=== PATIENT | female | born 1995 | race Caucasian/White ===

== ENCOUNTER 2024-08-17 14:37 | Emergency (ER) | payer OTHER, SELFPAY ==
[2024-08-17 14:42] VITALS: BP 128/98
[2024-08-17 15:05] LABS: % Basophils 0.5 % (0-2); % Eosinophils 2.7 % (0-6); % Immature Granulocytes 0.3 % (0-0.5); % Lymphocytes 16.6 % (20.5-51.1); % Monocytes 3.7 % (1.7-9.3); % Neutrophils 76.2 % (42.2-75.2); Absolute Basophils 0.1 10^3/uL (0-0.2); Absolute Eosinophils 0.3 10^3/uL (0-0.7); Absolute Lymphocytes 1.9 10^3/uL (1.2-3.4); Absolute Monocytes 0.4 10^3/uL (0.1-0.6); Absolute Neutrophils 8.9 10^3/uL (1.4-6.5); Hematocrit 40.5 % (37.0-47.0); Hemoglobin 13.9 g/dL (12.0-16.0); Mean Corp Hgb Conc. 34.3 g/dL (33.0-37.0); Mean Corpuscular Hgb 28.4 pg (27.0-31.0); Mean Corpuscular Volume 82.8 fL (81.0-99.0); Nucleated Red Blood Cells % 0 %; Platelet Count 267 10^3/uL (130-400); Red Blood Cell Count 4.89 10^6/uL (4.20-5.40); Red Cell Dist. Width 12.2 % (11.5-14.5); White Blood Cell Count 11.7 10^3/uL (4.8-10.8)
[2024-08-17 15:20] LABS: ALT (SGPT) 16 U/L (0-35); AST (SGOT) 22 U/L (14-36); Albumin 4.9 g/dl (3.5-5.0); Alkaline Phosphatase 48 U/L (38-126); Blood Urea Nitrogen 8 mg/dl (7-17); Calcium 9.8 mg/dl (8.4-10.2); Carbon Dioxide 22 mmol/L (22-30); Chloride 100 mmol/L (98-107); Glucose 89 mg/dl (70-99); Lipase 90 U/L (23-300); Potassium 3.9 mmol/L (3.5-5.1); Sodium 138 mmol/L (135-145); Total Bilirubin 0.8 mg/dl (0.2-1.3); Total Protein 7.6 g/dl (6.3-8.2); eGFR > 60.00
[2024-08-17 15:25] LABS: Troponin I < 0.012 ng/ml
--- NOTE | 2024-08-17 15:59 | ED.GENMED ---
History of Present Illness
General
Chief Complaint: Chest Problem
Source: patient
Exam Limitations: none
Time Seen by Provider: 08/17/24 15:38
History of Present Illness
History of Present Illness:
29-year-old otherwise healthy female presents complaining with intermittent chest pressure and racing heart rate over the past couple weeks. 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
evaluation. She denies lightheadedness. She travels frequently for her job. She denies leg swelling or calf pain. She still notes a chest pressure currently. No cough or fever. 3 days ago she was at home sitting on the couch and all of a
sudden her heart rate jumped to 148 bpm. This lasted around a minute. No other complaints at this time
Phy Exam
Physical Exam
Physical Exam:
General: Well-appearing female no acute respiratory distress
HEENT: Normocephalic atraumatic
Heart: Regular rate and rhythm no murmurs
Lungs: Clear no wheeze
Extremities: No cyanosis or edema
Course
Orders/Labs/Results
Orders:
Orders
08/17/24 14:19
TSH Reflex To Free T4 Urgent
Comment: ADD ON
08/17/24 14:38
Electrocardiogram (*1) Urgent
Reason for Study: Chest Pain
EKG- Treatment ONCE
08/17/24 14:49
Complete Blood Count/With Diff Urgent
Comprehensive Metabolic Panel Urgent
Lipase Urgent
Troponin I Urgent
08/17/24 15:49
Add On- LAB Urgent
Tests Added?: tsh reflex to t4
0.9% Sodium Chloride 1000 ml [Nss] 1,000 ml IV BOLUS
08/17/24 16:01
D-Dimer Urgent
08/17/24 16:34
CR Chest - 2 Views Urgent
Comment:
Reason For Exam: chest pain
Abnormal Lab Results
08/17/24
14:49
WBC 11.7 H 10^3/uL
(4.8-10.8)
MPV 11.0 H fL
(7.4-10.4)
Absolute Neuts (auto) 8.9 H 10^3/uL
(1.4-6.5)
Neutrophils % 76.2 H %
(42.2-75.2)
Lymphocytes % 16.6 L %
(20.5-51.1)
08/17/24 14:49
08/17/24 14:49
Vital Signs
Initial and Last Documented VS:
Initial Vital Signs
Temp Pulse Resp BP Pulse Ox
98.8 F 70 16 128/98 99
08/17/24 14:42 08/17/24 14:42 08/17/24 14:42 08/17/24 14:42 08/17/24 14:42
Last Documented Vital Signs
Temp Pulse Resp BP Pulse Ox
98.8 F 70 16 128/98 99
08/17/24 14:42 08/17/24 14:42 08/17/24 14:42 08/17/24 14:42 08/17/24 14:42
MDM/Problems Addressed
Differential Diagnosis Includes:
Chest pressure intermittent tachycardia. Differential could include arrhythmias versus ACS versus PE
EKG through triage shows sinus rhythm without ischemic changes
Troponin through triage undetectable. D-dimer added TSH added. Will hydrate.
*Critical Care Note
Total Time (30-74mins, 75-104mins- exclusive of procedures): Not Applicable
Update Note
Update Note:
Troponin and D-dimer normal. Labs reviewed without significant finding. Chest x-ray clear. No arrhythmias noted on monitor. Stable for discharge emergency room recommend follow-up with family doctor for Holter monitoring
ED Attending Note
-
Portions of this chart may have been created with voice recognition software.� Occasional wrong word or��sound alike� substitutions may have occurred due to the inherent limitations of voice recognition software.
Discharge Plan
Departure
Patient Disposition: Home (Routine Discharge)
Date of Disposition: 08/17/24
Time of Disposition: 17:51
Patient with high blood pressure during this ER visit?: No
Discharge Problem:
Chest pain
Instructions: Chest Pain (DC)
Referrals:
BRADLEY TUCKER [Other]
Activity Restrictions/Additional Instructions:
Rest. Stay hydrated peer return here for worsening symptoms otherwise follow-up with your doctor
Interventions
Interventions:
*Risk Screen - Suicide Last Done: 08/17/24 16:35
*General Assessment Last Done: 08/17/24 16:35
*Neglect/Abuse Screening Last Done: 08/17/24 16:35
*ED COVID-19 Vaccine History Last Done: 08/17/24 16:35
ED- Cardiac Assessment Last Done: 08/17/24 16:35
ED- Pulmonary Assessment Last Done: 08/17/24 16:35
Discharge Date and Time
Print Language: ICELANDIC
[2024-08-17] MEDS: NSS 1000 IV (16:00)
[2024-08-17 16:29] LABS: D-Dimer < 0.27 ug/mlFEU (0.00-0.50)
[2024-08-17 17:35] LABS: TSH Reflex To Free T4 2.23 uIU/ml (0.47-4.68)
[2024-08-17 18:28] VITALS: BP 125/95
== END 2024-08-17 18:29 | disposition home or self-care (01) ==
LOC: EMR 14:37
PROVIDERS: Physician Assistant; EMERGENCY PHYSICIAN Student in an Organized Health Care Education/Training Program
DX: R07.89 Other chest pain (principal)
CPT/HCPCS: 96360; 99285; 71046; 80053; 83690; 84443; 84484; 85025; 85379; 93005